=== PATIENT | female | born 1980 | race Two or more races ===

== ENCOUNTER 2025-01-19 17:45 | Emergency (ER) | payer MEDICAID, OTHER ==
[~2025-01-19] VITALS: Ht 160 cm; Wt 89.4 kg
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
[2025-01-19] MEDS ORDERED: IBUP-1455 PO (20:36)
[2025-01-19] MEDS ORDERED: CYCL-837 PO (20:36)
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
[2025-01-19] MEDS: KETOROLAC TROMETH 30 MG/ML 1ML VIAL IM ONE (21:34)
[2025-01-19 21:40] VITALS: BP 129/79; PULSE 56; RESP 12; TEMP 98.8; O2SAT 99
== END 2025-01-19 21:44 | disposition home or self-care (01) ==
LOC: ER 17:45
DX: S16.1XXA Strain of muscle, fascia and tendon at neck level, initial encounter (principal); V89.2XXA Person injured in unspecified motor-vehicle accident, traffic, initial encounter; Y93.89 Activity, other specified; Y92.89 Other specified places as the place of occurrence of the external cause; Y99.8 Other external cause status
CPT/HCPCS: 72040; 96372; 99283; J1885